=== PATIENT | female | born 1935 | race Caucasian/White ===

== ENCOUNTER 2018-07-13 13:42 | Observation (INO) | payer MEDICARE, OTHER ==
[2018-07-13] MEDS ORDERED: Sodium Chloride 0.9% 10 ML Syringe FLUSH PRN ×2 (16:37→20:03)
[2018-07-13] MEDS ORDERED: Iopamidol 755 Mg/ML 100 ML Bottle IV SCH (16:45)
[2018-07-13] MEDS ORDERED: Sodium Chloride 0.9% 80 ML IV SCH (16:45)
--- NOTE | 2018-07-13 18:16 | EDM.PDOC ---
ED HPI GENERAL MEDICAL PROBLEM - General Chief Complaint: Respiratory Problem Stated Complaint: SOB, BACK PAIN Time Seen by Provider: 07/13/18 14:31 - History of Present Illness INITIAL COMMENTS - FREE TEXT/NARRATIVE: 82 years old female patient with history of pulmonary hypertension, recurrent PE , chronically until related on Coumadin, hiatal hernia, hyperlipidemia, hypertension and other medical problem brought in by her daughter with a chief complaint of exertional dyspnea, has been going on for several weeks. She was seen by her primary doctor last month for the same complaint and she was supposed to get an echocardiogram and cardiac stress test to rule out underlying cardiac etiology. 2 days ago her shortness of breath was worse, one episode during the night resolved after a few minutes when she sat up however since then she said she gets very winded with any minimal physical activities, also went to stand up or raise her hand above the level of her head. Denies any shortness of breath during rest. Denies any chest pain. Denies any cough or fever. Denies any abdominal pain diarrhea or constipation. Denies any urinary symptom. She had a fall 2 weeks ago and fracture of her right forearm and she is here with her daughter for assistance. Upper Back Pain Score (Numeric/FACES): 3 - Related Data Allergies Allergy/AdvReac Type Severity Reaction Status Date / Time Penicillins Allergy Other Verified 07/13/18 14:08 Sulfa (Sulfonamide Allergy Other Verified 07/13/18 14:08 Antibiotics) Home Meds: Home Meds Betamethasone/Propylene Glyc [Betamethasone DP Aug 0.05%] 1 applic TOP BID PRN 07/13/18 [History] Calcipotriene [Dovonex 0.005% Crm] 1 applic TOP BID PRN 07/13/18 [History] Citalopram Hydrobromide [Celexa] 20 mg PO DAILY 07/13/18 [History] Diltiazem [Diltiazem XR] 240 mg PO DAILY 07/13/18 [History] Hydrocortisone [Hydrocortisone 2.5% Crm] 1 applicful TOP BID 07/13/18 [History] Ketoconazole [Nizoral 2% Crm] 1 applicful TOP BID PRN 07/13/18 [History] Multivitamin [Multivitamins] 1 each PO DAILY 07/13/18 [History] Omeprazole 20 mg PO DAILY 07/13/18 [History] Psyllium [Metamucil] 0.52 gm PO DAILY 07/13/18 [History] Tolterodine Tartrate [Tolterodine Tartrate ER] 4 mg PO DAILY 07/13/18 [History] Warfarin [Coumadin] 5 mg PO ASDIRECTED 07/13/18 [History] buPROPion [Wellbutrin SR] 100 mg PO DAILY 07/13/18 [History] Past Medical History HEENT History: Reports: Impaired Vision Cardiovascular History: Reports: Blood Clots/VTE/DVT Respiratory History: Reports: PE Other Respiratory History: wheezing last 2 months, has cpap Gastrointestinal History: Reports: Chronic Constipation, GERD, Hiatal Hernia Genitourinary History: Reports: Urinary Incontinence [employer] History: Reports: Musculoskeletal History: Reports: Arthritis Psychiatric History: Reports: Anxiety, Depression Endocrine/Metabolic History: Reports: Obesity/BMI 30+ Oncologic (Cancer) History: Reports: Basal Cell Carcinoma Dermatologic History: Reports: Psoriasis - Infectious Disease History Infectious Disease History: Reports: Chicken Pox, Measles, Mumps - Past Surgical History Head Surgeries/Procedures: Reports: None HEENT Surgical History: Reports: Adenoidectomy, Cataract Surgery, Tonsillectomy Cardiovascular Surgical History: Reports: None Respiratory Surgical History: Reports: None GI Surgical History: Reports: None Female Surgical History: Reports: Hysterectomy, Other (See Below) Other Female Surgeries/Procedures: bladder sling Musculoskeletal Surgical History: Reports: Other (See Below) Other Musculoskeletal Surgeries/Procedures:: rt wrist fx Oncologic Surgical History: Reports: None Dermatological Surgical History: Reports: Skin Biopsy Social & Family History - Tobacco Use Smoking Status *Q: Never Smoker Second Hand Smoke Exposure: No - Caffeine Use Caffeine Use: Reports: Tea - Recreational Drug Use Recreational Drug Use: No ED ROS GENERAL - Review of Systems Review Of Systems: ROS reveals no pertinent complaints other than HPI. ED EXAM, GENERAL - Physical Exam Exam: See Below Exam Limited By: No Limitations General Appearance: Alert, WD/WN, No Apparent Distress Ears: Normal External Exam Nose: Normal Inspection Throat/Mouth: Normal Inspection Head: Atraumatic, Normocephalic Neck: Normal Inspection, Supple, Non-Tender, Full Range of Motion Respiratory/Chest: No Respiratory Distress, Lungs Clear, Normal Breath Sounds, No Accessory Muscle Use, Rales. No: Crackles, Rhonchi, Wheezing Cardiovascular: Normal Peripheral Pulses, No Edema, No Gallop, Systolic Murmur GI/Abdominal: Normal Bowel Sounds, Soft, Non-Tender, No Organomegaly, No Distention Neurological: Alert, Oriented, CN II-XII Intact, Normal Cognition, Normal Gait, Normal Reflexes, No Motor/Sensory Deficits Course - Vital Signs Text/Narrative:: Patient was seen and examined shortly after arrival. Stable. On personnel monitor. EKG shows right bundle branch block, minimal ST elevation on the inferior leads. No previous EKG to compare. Negative troponin. Chest x-ray shows left-sided hiatal hernia. No infiltrate. EKG, lab and imaging reviewed with the patient and her daughter at the bedside. History of recurrent PE on Coumadin. I did order a CT PE which did not show any PE. No sign of pneumonia or acute infiltrate. Large hiatal hernia. No sign of volume overload or CHF. At this point this is most likely multifactorial from possibly underlying CHF however her proBNP is normal. Chest x-ray did not show any sign of pulmonary congestion or effusion and does not have any clinical sign of CHF. No edema. No jugular venous distention. She would definitely benefit from an echocardiogram and cardiac stress test to rule out cardiac etiology. Also history of pulmonary hypertension could be contributing. Definitely large hiatal hernia A overrule. Also she have a thoracic compression fracture. At this point unclear etiology. Case was discussed with Dr. king hospitalist job setter honing and he accepted admission for further management. He will discuss with the patient and her family and either she will be admitted for further workup and further management unless the family choose to be discharged to follow-up as an outpatient. Patient agrees with the plan. Stable for admission. Last Recorded V/S: Last Vital Signs Temp 36.4 C 07/13/18 14:09 Pulse 91 07/13/18 14:09 Resp 12 07/13/18 14:09 BP 142/57 H 07/13/18 14:09 Pulse Ox 91 L 07/13/18 14:09 - Orders/Labs/Meds Orders: Active Orders 24 hr Category Date Time Status Cardiac Monitoring [RC] .As Directed Care 07/13/18 14:40 Active EKG Documentation Completion [RC] ASDIRECTED Care 07/13/18 14:41 Active Ang Chest [CT] Stat Exams 07/13/18 16:21 Taken Chest 2V [CR] Stat Exams 07/13/18 14:41 Taken Iopamidol [Isovue-370 (76%)] Med 07/13/18 16:45 Active 100 ml IV . DIRECTED Sodium Chloride 0.9% [Normal Saline] 80 ml Med 07/13/18 16:45 Active IV ASDIRECTED Sodium Chloride 0.9% [Saline Flush] Med 07/13/18 16:37 Active 10 ml FLUSH ASDIRECTED PRN EKG 12 Lead [EK] Stat Ther 07/13/18 14:41 Ordered Medication Orders Sodium Chloride (Normal Saline) 80 mls @ 3 mls/sec IV ASDIRECTED SHAYE Last Admin: 07/13/18 16:53 Dose: 3 mls/sec Iopamidol (Isovue-370 (76%)) 100 ml IV . DIRECTED [facility] Last Admin: 07/13/18 16:53 Dose: 100 ml Sodium Chloride (Saline Flush) 10 ml FLUSH ASDIRECTED PRN PRN Reason: Keep Vein Open Last Admin: 07/13/18 16:52 Dose: 10 ml Labs: Laboratory Tests 07/13/18 07/13/18 07/13/18 Range/Units 14:39 14:39 14:39 WBC 5.7 (4.5-11.0) K/uL RBC 4.38 (3.30-5.50) M/uL Hgb 13.6 (12.0-15.0) g/dL Hct 42.4 (36.0-48.0) % MCV 97 (80-98) fL MCH 31 (27-31) pg MCHC 32 (32-36) % Plt Count 263 (150-400) K/uL Neut % (Auto) 55 (36-66) % Lymph % (Auto) 27 (24-44) % Hart % (Auto) 8 H (2-6) % Eos % (Auto) 9 H (2-4) % Baso % (Auto) 2 H (0-1) % PT 21.9 H (9.5-12.0) sec INR 2.07 H (0.80-1.20) Sodium 141 (140-148) mmol/L Potassium 4.0 (3.6-5.2) mmol/L Chloride 103 (100-108) mmol/L Carbon Dioxide 28 (21-32) mmol/L Anion Gap 10.2 (5.0-14.0) mmol/L BUN 13 (7-18) mg/dL Creatinine 0.9 (0.6-1.0) mg/dL Est Cr Clr Drug Dosing 35.21 mL/min Estimated GFR (MDRD) > 60 (>60) Glucose 104 (74-106) mg/dL Calcium 9.2 (8.5-10.1) mg/dL Total Bilirubin 0.3 (0.2-1.0) mg/dL AST 15 (15-37) U/L ALT 22 (12-78) U/L Alkaline Phosphatase 122 H (46-116) U/L Troponin I < 0.017 (0.000-0.056) ng/mL NT-Pro-B Natriuret Pep 73 (5-450) pg/mL Total Protein 7.2 (6.4-8.2) g/dL Albumin 3.0 L (3.4-5.0) g/dL Globulin 4.2 H (2.3-3.5) g/dL Albumin/Globulin Ratio 0.7 L (1.2-2.2) Meds: Medications Generic Name Dose Route Start Last Admin Trade Name Freq PRN Reason Stop Dose Admin Sodium Chloride 80 mls @ 3 mls/sec 07/13/18 16:45 07/13/18 16:53 Normal Saline IV 3 mls/sec ASDIRECTED SHAYE Administration Iopamidol 100 ml 07/13/18 16:45 07/13/18 16:53 Isovue-370 (76%) IV 100 ml . DIRECTED SHAYE Administration Sodium Chloride 10 ml 07/13/18 16:37 07/13/18 16:52 Saline Flush FLUSH 10 ml ASDIRECTED PRN Administration Keep Vein Open Departure - Departure Time of Disposition: 18:20 Disposition: Admitted As Inpatient 67 Condition: Good Clinical Impression: Exertional dyspnea - Discharge Information Referrals: PCP,None [Primary Care Provider] - - Problem List Review Problem List Initiated/Reviewed/Updated: Yes - My Orders Last 24 Hours: My Active Orders 07/13/18 14:40 Cardiac Monitoring [RC] .As Directed 07/13/18 14:41 EKG Documentation Completion [RC] ASDIRECTED Chest 2V [CR] Stat EKG 12 Lead [EK] Stat 07/13/18 16:21 Ang Chest [CT] Stat 07/13/18 16:37 Sodium Chloride 0.9% [Saline Flush] 10 ml FLUSH ASDIRECTED PRN 07/13/18 16:45 Iopamidol [Isovue-370 (76%)] 100 ml IV . DIRECTED Sodium Chloride 0.9% [Normal Saline] 80 ml IV ASDIRECTED - Assessment/Plan Last 24 Hours: My Active Orders 07/13/18 14:40 Cardiac Monitoring [RC] .As Directed 07/13/18 14:41 EKG Documentation Completion [RC] ASDIRECTED Chest 2V [CR] Stat EKG 12 Lead [EK] Stat 07/13/18 16:21 Ang Chest [CT] Stat 07/13/18 16:37 Sodium Chloride 0.9% [Saline Flush] 10 ml FLUSH ASDIRECTED PRN 07/13/18 16:45 Iopamidol [Isovue-370 (76%)] 100 ml IV . DIRECTED Sodium Chloride 0.9% [Normal Saline] 80 ml IV ASDIRECTED Plan: Admission to Dr. vásquez
--- NOTE | 2018-07-13 19:17 | PCM.HP ---
H&P History of Present Illness - General Date of Service: 07/13/18 Admit Problem/Dx: Admission Diagnosis/Problem Admission Diagnosis/Problem Hypoxia Source of Information: Patient, Old Records, Provider, RN Notes Reviewed History Limitations: Reports: No Limitations - History of Present Illness Initial Comments - Free Text/Narative: Ms. Rodriguez is an 82-year-old woman who was admitted through the emergency department to observation status for further evaluation and management of hypoxia and shortness of breath with exertion. She has had difficulty with shortness of breath over the past year. In June approximately one month ago she was seen and evaluated in the clinic in the [facility]. At that time with ambulation she was noted to have significant hypoxia that resolved relatively quickly with rest. Further evaluation was recommended with stress test and echocardiogram. Unfortunately she was unable to get those tests completed and then on 24 June fell and broke her wrist. She is been staying with her daughter here in [facility] as she recovers from her wrist fracture. During this week she is noted increased symptoms of shortness of breath with relatively minimal exertion.s She contacted her physician in the [facility] who recommended that she come to the emergency department for further evaluation. Laboratory studies obtained in the emergency department are unremarkable including a normal troponin and BNP. Chest x-ray shows a large hiatal hernia, no obvious infiltrates. She has a history of previous deep vein thrombosis and pulmonary emboli, currently treated on long-term oral anticoagulation with warfarin. INR obtained in the emergency department is within therapeutic range. CT scan of the chest was obtained with contrast that showed no evidence of new pulmonary emboli and no obvious pulmonary infiltrates or edema. Again was noted a large hiatal hernia with even herniation of a portion of the pancreas into the chest. Saturations in the emergency department have been in the range of 90- 91% on room air. Symptoms have been present mainly with exertion over the past few weeks but it definitely worsens. Upper Back Pain Score (Numeric/FACES): 3 - Related Data Allergies/Adverse Reactions: Allergies Allergy/AdvReac Type Severity Reaction Status Date / Time Penicillins Allergy Other Verified 07/13/18 14:08 Sulfa (Sulfonamide Allergy Other Verified 07/13/18 14:08 Antibiotics) Home Medications: Home Meds Betamethasone/Propylene Glyc [Betamethasone DP Aug 0.05%] 1 applic TOP BID PRN 07/13/18 [History] Calcipotriene [Dovonex 0.005% Crm] 1 applic TOP BID PRN 07/13/18 [History] Citalopram Hydrobromide [Celexa] 20 mg PO DAILY 07/13/18 [History] Diltiazem [Diltiazem XR] 240 mg PO DAILY 07/13/18 [History] Hydrocortisone [Hydrocortisone 2.5% Crm] 1 applicful TOP BID 07/13/18 [History] Ketoconazole [Nizoral 2% Crm] 1 applicful TOP BID PRN 07/13/18 [History] Multivitamin [Multivitamins] 1 each PO DAILY 07/13/18 [History] Omeprazole 20 mg PO DAILY 07/13/18 [History] Psyllium [Metamucil] 0.52 gm PO DAILY 07/13/18 [History] Tolterodine Tartrate [Tolterodine Tartrate ER] 4 mg PO DAILY 07/13/18 [History] Warfarin [Coumadin] 5 mg PO ASDIRECTED 07/13/18 [History] buPROPion [Wellbutrin SR] 100 mg PO DAILY 07/13/18 [History] Past Medical History HEENT History: Reports: Impaired Vision Cardiovascular History: Reports: Blood Clots/VTE/DVT Respiratory History: Reports: PE Other Respiratory History: wheezing last 2 months, has cpap Gastrointestinal History: Reports: Chronic Constipation, GERD, Hiatal Hernia Genitourinary History: Reports: Urinary Incontinence HYPERBARIC NURSE History: Reports: Musculoskeletal History: Reports: Arthritis Psychiatric History: Reports: Anxiety, Depression Endocrine/Metabolic History: Reports: Obesity/BMI 30+ Oncologic (Cancer) History: Reports: Basal Cell Carcinoma Dermatologic History: Reports: Psoriasis - Infectious Disease History Infectious Disease History: Reports: Chicken Pox, Measles, Mumps - Past Surgical History Head Surgeries/Procedures: Reports: None HEENT Surgical History: Reports: Adenoidectomy, Cataract Surgery, Tonsillectomy Cardiovascular Surgical History: Reports: None Respiratory Surgical History: Reports: None GI Surgical History: Reports: None Female Surgical History: Reports: Hysterectomy, Other (See Below) Other Female Surgeries/Procedures: bladder sling Musculoskeletal Surgical History: Reports: Other (See Below) Other Musculoskeletal Surgeries/Procedures:: rt wrist fx Oncologic Surgical History: Reports: None Dermatological Surgical History: Reports: Skin Biopsy Social & Family History - Tobacco Use Smoking Status *Q: Never Smoker Second Hand Smoke Exposure: No - Caffeine Use Caffeine Use: Reports: Tea - Recreational Drug Use Recreational Drug Use: No H&P Review of Systems - Review of Systems: Review Of Systems: See Below General: Reports: Weakness. Denies: Fever, Chills, Diaphoresis HEENT: Reports: No Symptoms Pulmonary: Reports: Shortness of Breath. Denies: Wheezing, Pleuritic Chest Pain , Cough, Sputum, Hemoptysis Cardiovascular: Reports: Dyspnea on Exertion. Denies: Chest Pain, Palpitations , Orthopnea, PND, Edema, Lightheadedness, Syncope Gastrointestinal: Reports: No Symptoms Genitourinary: Reports: No Symptoms Musculoskeletal: Reports: No Symptoms Skin: Reports: No Symptoms Psychiatric: Reports: No Symptoms Neurological: Reports: No Symptoms Hematologic/Lymphatic: Reports: No Symptoms Immunologic: Reports: No Symptoms Exam - Exam Exam: See Below - Vital Signs Vital Signs: Last Vital Signs Temp 97.6 F 07/13/18 14:09 Pulse 91 07/13/18 14:09 Resp 12 07/13/18 14:09 BP 142/57 H 07/13/18 14:09 Pulse Ox 91 L 07/13/18 14:09 Weight: 165 lb - Exam Quality Assessment: DVT Prophylaxis General: Alert, Oriented, Cooperative, Mild Distress HEENT: Conjunctiva Clear, Hearing Intact, Mucosa Moist & Thorp, Normal Nasal Septum, Posterior Pharynx Clear, Pupils Equal Neck: Supple, Trachea Midline, +2 Carotid Pulse wo Bruit Lungs: Clear to Auscultation, Normal Respiratory Effort Cardiovascular: Regular Rate, Regular Rhythm, Normal S1, Normal S2, Systolic Murmur (Harsh 3/6 systolic murmur heard best at the left sternal border). No: Diastolic Murmur GI/Abdominal Exam: Soft, Non-Tender, No Organomegaly, No Distention Back Exam: Normal Inspection, Full Range of Motion Extremities: Non-Tender, No Pedal Edema Skin: Warm, Dry, Intact Neurological: Cranial Nerves Intact, Strength Equal Bilateral, Normal Speech, Normal Tone, Sensation Intact. No: Focal Deficit Neuro Extensive - Mental Status: Alert, Oriented x3, Normal Mood/Affect, Normal Cognition, Memory Intact - Patient Data Lab Results Last 24 hrs: Laboratory Results - last 24 hr 07/13/18 07/13/18 07/13/18 Range/Units 14:39 14:39 14:39 WBC 5.7 (4.5-11.0) K/uL RBC 4.38 (3.30-5.50) M/uL Hgb 13.6 (12.0-15.0) g/dL Hct 42.4 (36.0-48.0) % MCV 97 (80-98) fL MCH 31 (27-31) pg MCHC 32 (32-36) % Plt Count 263 (150-400) K/uL Neut % (Auto) 55 (36-66) % Lymph % (Auto) 27 (24-44) % [place] % (Auto) 8 H (2-6) % Eos % (Auto) 9 H (2-4) % Baso % (Auto) 2 H (0-1) % PT 21.9 H (9.5-12.0) sec INR 2.07 H (0.80-1.20) Sodium 141 (140-148) mmol/L Potassium 4.0 (3.6-5.2) mmol/L Chloride 103 (100-108) mmol/L Carbon Dioxide 28 (21-32) mmol/L Anion Gap 10.2 (5.0-14.0) mmol/L BUN 13 (7-18) mg/dL Creatinine 0.9 (0.6-1.0) mg/dL Est Cr Clr Drug Dosing 35.21 mL/min Estimated GFR (MDRD) > 60 (>60) Glucose 104 (74-106) mg/dL Calcium 9.2 (8.5-10.1) mg/dL Total Bilirubin 0.3 (0.2-1.0) mg/dL AST 15 (15-37) U/L ALT 22 (12-78) U/L Alkaline Phosphatase 122 H (46-116) U/L Troponin I < 0.017 (0.000-0.056) ng/mL NT-Pro-B Natriuret Pep 73 (5-450) pg/mL Total Protein 7.2 (6.4-8.2) g/dL Albumin 3.0 L (3.4-5.0) g/dL Globulin 4.2 H (2.3-3.5) g/dL Albumin/Globulin Ratio 0.7 L (1.2-2.2) Result Diagrams: 07/13/18 14:39 07/13/18 14:39 *Q Meaningful Use (ADM) - VTE *Q VTE Pharmacological Contraindications *Q: High INR Value - VTE Risk Assess *Q Each Risk Factor Represents 1 Point: Obesity ( BMI > 25 kg/m2) Total Score 1 Point Risk Factors: 1 Each Risk Factor Represents 2 Points: Immobilizing plaster cast less than 1 month Total Score 2 Point Risk Factors: 2 Each Risk Factor Represents 3 Points: Age 75 Years or Greater, History of DVT/PE Total Score 3 Point Risk Factors: 6 Each Risk Factor Represents 5 Points: None Total Score 5 Point Risk Factors: 0 Venous Thromboembolism Risk Factor Score *Q: 9 Problem List Initiated/Reviewed/Updated: Yes Orders Last 24hrs: Active Orders 24 hr Category Date Time Status Patient Status Manage Transfer [TRANSFER] Routine ADT 07/13/18 19:05 Ordered Cardiac Monitoring [RC] .As Directed Care 07/13/18 14:40 Active EKG Documentation Completion [RC] ASDIRECTED Care 07/13/18 14:41 Active Ang Chest [CT] Stat Exams 07/13/18 16:21 Taken Chest 2V [CR] Stat Exams 07/13/18 14:41 Taken Iopamidol [Isovue-370 (76%)] Med 07/13/18 16:45 Active 100 ml IV . DIRECTED Sodium Chloride 0.9% [Normal Saline] 80 ml Med 07/13/18 16:45 Active IV ASDIRECTED Sodium Chloride 0.9% [Saline Flush] Med 07/13/18 16:37 Active 10 ml FLUSH ASDIRECTED PRN Resuscitation Status Routine Resus Stat 07/13/18 19:08 Ordered EKG 12 Lead [EK] Stat Ther 07/13/18 14:41 Ordered Medication Orders Sodium Chloride (Normal Saline) 80 mls @ 3 mls/sec IV ASDIRECTED SHAYE Last Admin: 07/13/18 16:53 Dose: 3 mls/sec Iopamidol (Isovue-370 (76%)) 100 ml IV . DIRECTED [facility] Last Admin: 07/13/18 16:53 Dose: 100 ml Sodium Chloride (Saline Flush) 10 ml FLUSH ASDIRECTED PRN PRN Reason: Keep Vein Open Last Admin: 07/13/18 16:52 Dose: 10 ml Assessment/Plan Comment:: ASSESSMENT AND PLAN DYSPNEA AND HYPOXIA WITH ACTIVITY-evaluation thus far shows no evidence of pulmonary embolism, pulmonary edema, pulmonary infiltrate, or acute infarct. CT scan does show a large hiatal hernia causing atelectasis which is likely a contributing factor. Troponin and BNP are within normal range. She has a systolic murmur consistent with aortic stenosis. Symptoms could also potentially represent anginal equivalent. Further evaluation is warranted, we are unable to obtain an echocardiogram or Cardiolite stress test until Monday morning. She will be admitted for observation and will consider transfer to tertiary care center in a.m. -Cardiac monitoring -Supplemental oxygen as needed -Transfer in a.m. for further evaluation LARGE HIATAL HERNIA-causing atelectasis HISTORY OF DEEP VEIN THROMBOSIS AND PULMONARY EMBOLISM-on long-term oral anticoagulation with warfarin, INR is within therapeutic range. MAINTENANCE ISSUES -DVT prophylaxis;Current therapy with warfarin should provide adequate DVT prophylaxis -GI prophylaxis;Not indicated -Dahl catheter;Not indicated -Nutrition;Regular diet -Nicotine dependence;Not required CODE STATUS-FULL CODE ADMISSION STATUS-this patient will be admitted to observation status symptoms expect no more than a one night hospital stay for evaluation and management of problems as outlined above. DISPOSITION-anticipate discharge/transfer in a.m. PRIMARY CARE PROVIDER-
[2018-07-13] MEDS ORDERED: Albuterol 0.083% 2.5 MG/3 ML Neb Soln NEB PRN (20:03)
[2018-07-13] MEDS ORDERED: Acetaminophen 325 MG Tab PO PRN (20:03)
[2018-07-13] MEDS ORDERED: Ondansetron 4 MG Tab.DIS PO PRN (20:03)
[2018-07-13] MEDS ORDERED: TOLTERODINE TARTRATE 4 MG PO SCH (21:00)
[2018-07-13] MEDS ORDERED: Hydrocortisone 2.5% Crm 30 GM Tube TOP SCH (21:00)
[2018-07-13] MEDS: WARFARIN 5 MG PO SCH (22:41)
[2018-07-14] MEDS ORDERED: BUPROPION 100 MG PO SCH (09:00)
[2018-07-14] MEDS ORDERED: DILTIAZEM 240 MG PO SCH (09:00)
[2018-07-14] MEDS ORDERED: CITALOPRAM 20 MG PO SCH (09:00)
[2018-07-14] MEDS ORDERED: OMEPRAZOLE 20 MG PO SCH (09:00)
[2018-07-14] MEDS: WARFARIN 5 MG PO SCH (09:20)
--- NOTE | 2018-07-14 10:52 | PCM.DCSUM1 ---
Discharge Summary - Hospital Course Brief History: Ms. Rodriguez is an 82-year-old woman who was admitted to observation status for evaluation and management of exertional dyspnea and upper back pain. - Discharge Data Discharge Date: 07/14/18 Discharge Disposition: DC/Tfer to Acute Hospital 02 Condition: Fair - Discharge Diagnosis/Problem(s) (1) Anginal equivalent SNOMED Code(s): 459611563 ICD Code: I20.8 - OTHER FORMS OF ANGINA PECTORIS Status: Acute Current Visit: Yes (2) Exertional dyspnea SNOMED Code(s): 51388271 ICD Code: R06.09 - OTHER FORMS OF DYSPNEA Status: Acute Current Visit: Yes (3) Aortic stenosis SNOMED Code(s): 74466144 ICD Code: I35.0 - NONRHEUMATIC AORTIC (VALVE) STENOSIS Status: Acute Current Visit: Yes (4) Large hiatal hernia SNOMED Code(s): 29203269 ICD Code: K44.9 - DIAPHRAGMATIC HERNIA WITHOUT OBSTRUCTION OR GANGRENE Status: Acute Current Visit: Yes - Patient Summary/Data Hospital Course: Ms. Rodriguez is an 82-year-old woman who was admitted through the emergency department to observation status for further evaluation and management of shortness of breath and upper back pain associated with exertion. She has had difficulty with shortness of breath over the past year. In June approximately one month ago she was seen and evaluated in the clinic in the [facility]. At that time with ambulation she was noted to have significant hypoxia that resolved relatively quickly with rest. Further evaluation was recommended with stress test and echocardiogram. Unfortunately she was unable to get those tests completed and then on 24 June fell and broke her wrist. She is been staying with her daughter here in [facility] as she recovers from her wrist fracture. Over the past 1-2 weeks she has noted progression of her symptoms with shortness of breath and pain radiating to her upper back occurring with relatively minimal exertion. She contacted her physician in the [facility] who recommended that she come to the emergency department for further evaluation. Laboratory studies obtained in the emergency department are unremarkable including a normal troponin and BNP. Chest x-ray shows a large hiatal hernia, no obvious infiltrates. She has a history of previous deep vein thrombosis and pulmonary emboli, currently treated on long-term oral anticoagulation with warfarin. INR obtained in the emergency department is within therapeutic range. CT scan of the chest was obtained with contrast that showed no evidence of new pulmonary emboli and no obvious pulmonary infiltrates or edema. 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 Saturations in the emergency department have been in the range of 90-91% on room air. Symptoms have been present mainly with exertion over the past few weeks but it definitely worse over the past few days. She was placed on telemetry monitoring on admission and no significant dysrhythmias were noted during the hospital stay. She was able to walk in the hallway with staff and did become mildly dyspneic. This morning when she went into the bathroom and came out was very short of breath with pain into her upper back. Symptoms resolved with rest and required no further intervention. Concern is that she is experiencing possible anginal equivalent and will require further evaluation. She would like to return to the [facility] for this evaluation, I attempted to try and facilitate outpatient evaluation but was unsuccessful in doing this. I'm concerned that she is experiencing progressive anginal symptoms especially in the light of otherwise negative evaluation. She does have a murmur consistent with aortic stenosis and it is also likely that her large hiatal hernia causing atelectasis is contributing to symptoms of shortness of breath. I discussed findings and concerns with Dr. Marcos Griggs in the emergency department at [facility] in [facility]. Given the inability to facilitate expedient outpatient evaluation patient will be transferred there for further evaluation on an inpatient basis. Activity will be as tolerated and she will remain on her usual diet. She was started on aspirin 81 mg daily while in the hospital and also metoprolol 25 mg twice daily. - Patient Instructions Diet: Low Sodium Activity: No Strenuous Activities Other/Special Instructions: Patient will be transferred to [facility] in [facility] by family for further subspecialty evaluation and management. - Discharge Plan *PRESCRIPTION DRUG MONITORING PROGRAM REVIEWED*: Not Applicable *COPY OF PRESCRIPTION DRUG MONITORING REPORT IN PATIENT KATY: Not Applicable Home Medications: Home Meds Betamethasone/Propylene Glyc [Betamethasone DP Aug 0.05%] 1 applic TOP BID PRN 07/13/18 [History] Calcipotriene [Dovonex 0.005% Crm] 1 applic TOP BID PRN 07/13/18 [History] Citalopram Hydrobromide [Celexa] 20 mg PO DAILY 07/13/18 [History] Diltiazem [Dilacor XR] 240 mg PO DAILY 07/13/18 [History] Hydrocortisone [Hydrocortisone 2.5% Crm] 1 applicful TOP BID 07/13/18 [History] Ketoconazole [Nizoral 2% Crm] 1 applicful TOP BID PRN 07/13/18 [History] Multivitamin [Multivitamins] 1 each PO DAILY 07/13/18 [History] Omeprazole 20 mg PO DAILY 07/13/18 [History] Psyllium [Metamucil] 0.52 gm PO DAILY 07/13/18 [History] Tolterodine Tartrate [Tolterodine Tartrate ER] 4 mg PO DAILY 07/13/18 [History] Warfarin [Coumadin] 5 mg PO ASDIRECTED 07/13/18 [History] buPROPion [Wellbutrin SR] 100 mg PO DAILY 07/13/18 [History] Aspirin 81 mg PO DAILY tab.chew 07/14/18 [Rx] Metoprolol Tartrate [Lopressor] 25 mg PO Q12H tablet 07/14/18 [Rx] - Discharge Summary/Plan Comment DC Time >30 min.: No - Patient Data Vitals - Most Recent: Last Vital Signs Temp 97.6 F 07/14/18 06:55 Pulse 68 07/14/18 06:55 Resp 18 07/14/18 06:55 BP 133/50 L 07/14/18 06:55 Pulse Ox 95 07/14/18 07:28 Weight - Most Recent: 155 lb 2 oz I&O - Last 24 hours: Intake & Output 07/13/18 07/14/18 07/14/18 22:59 06:59 14:59 Intake Total 240 Balance 240 Lab Results - Last 24 hrs: Laboratory Results - last 24 hr 07/13/18 07/13/18 07/13/18 Range/Units 14:39 14:39 14:39 WBC 5.7 (4.5-11.0) K/uL RBC 4.38 (3.30-5.50) M/uL Hgb 13.6 (12.0-15.0) g/dL Hct 42.4 (36.0-48.0) % MCV 97 (80-98) fL MCH 31 (27-31) pg MCHC 32 (32-36) % Plt Count 263 (150-400) K/uL Neut % (Auto) 55 (36-66) % Lymph % (Auto) 27 (24-44) % Howell % (Auto) 8 H (2-6) % Eos % (Auto) 9 H (2-4) % Baso % (Auto) 2 H (0-1) % PT 21.9 H (9.5-12.0) sec INR 2.07 H (0.80-1.20) Sodium 141 (140-148) mmol/L Potassium 4.0 (3.6-5.2) mmol/L Chloride 103 (100-108) mmol/L Carbon Dioxide 28 (21-32) mmol/L Anion Gap 10.2 (5.0-14.0) mmol/L BUN 13 (7-18) mg/dL Creatinine 0.9 (0.6-1.0) mg/dL Est Cr Clr Drug Dosing 35.21 mL/min Estimated GFR (MDRD) > 60 (>60) Glucose 104 (74-106) mg/dL Calcium 9.2 (8.5-10.1) mg/dL Total Bilirubin 0.3 (0.2-1.0) mg/dL AST 15 (15-37) U/L ALT 22 (12-78) U/L Alkaline Phosphatase 122 H (46-116) U/L Troponin I < 0.017 (0.000-0.056) ng/mL NT-Pro-B Natriuret Pep 73 (5-450) pg/mL Total Protein 7.2 (6.4-8.2) g/dL Albumin 3.0 L (3.4-5.0) g/dL Globulin 4.2 H (2.3-3.5) g/dL Albumin/Globulin Ratio 0.7 L (1.2-2.2) 07/14/18 07/14/18 Range/Units 04:56 04:56 WBC 6.0 (4.5-11.0) K/uL RBC 4.01 (3.30-5.50) M/uL Hgb 12.5 (12.0-15.0) g/dL Hct 38.9 (36.0-48.0) % MCV 97 (80-98) fL MCH 31 (27-31) pg MCHC 32 (32-36) % Plt Count 238 (150-400) K/uL Neut % (Auto) 52 (36-66) % Lymph % (Auto) 26 (24-44) % Howell % (Auto) 12 H (2-6) % Eos % (Auto) 9 H (2-4) % Baso % (Auto) 1 (0-1) % PT (9.5-12.0) sec INR (0.80-1.20) Sodium 140 (140-148) mmol/L Potassium 4.2 (3.6-5.2) mmol/L Chloride 105 (100-108) mmol/L Carbon Dioxide 29 (21-32) mmol/L Anion Gap 6.1 (5.0-14.0) mmol/L BUN 10 (7-18) mg/dL Creatinine 0.9 (0.6-1.0) mg/dL Est Cr Clr Drug Dosing 35.21 mL/min Estimated GFR (MDRD) > 60 (>60) Glucose 100 (74-106) mg/dL Calcium 8.9 (8.5-10.1) mg/dL Total Bilirubin (0.2-1.0) mg/dL AST (15-37) U/L ALT (12-78) U/L Alkaline Phosphatase (46-116) U/L Troponin I (0.000-0.056) ng/mL NT-Pro-B Natriuret Pep (5-450) pg/mL Total Protein (6.4-8.2) g/dL Albumin (3.4-5.0) g/dL Globulin (2.3-3.5) g/dL Albumin/Globulin Ratio (1.2-2.2) Med Orders - Current: Current Medications Acetaminophen (Tylenol) 650 mg PO Q4H PRN PRN Reason: Pain (Mild 1-3)/fever Albuterol (Proventil Neb Soln) 2.5 mg NEB Q4H PRN PRN Reason: Shortness Of Breath/wheezing Aspirin (Aspirin) 81 mg PO DAILY [facility] Bupropion HCl (Wellbutrin Sr) 100 mg PO DAILY [facility] Citalopram Hydrobromide (Celexa) 20 mg PO DAILY [facility] Hydrocortisone (Hydrocortisone 2.5% Crm) 0 gm TOP BID [facility] Last Admin: 07/14/18 09:20 Dose: Not Given Metoprolol Tartrate (Lopressor) 25 mg PO Q12H [facility] Diltiazem (Cartia Xt () 240 MgPom) 0 mg PO DAILY [facility] Last Admin: 07/14/18 09:20 Dose: 240 mg Omeprazole (Prilosec (Otc) 20mgPom) 0 mg PO ACBREAKFAST [facility] Last Admin: 07/14/18 09:20 Dose: 20 mg Tolterodine Tartrate Er 4mg Own Med * * 4 mg PO BEDTIME [facility] Last Admin: 07/13/18 22:40 Dose: 4 mg Ondansetron HCl (Zofran Odt) 4 mg PO Q6H PRN PRN Reason: Nausea able to take PO Senna/Docusate Sodium (Senna Plus) 1 tab PO BID PRN PRN Reason: Constipation Sodium Chloride (Saline Flush) 10 ml FLUSH ASDIRECTED PRN PRN Reason: Keep Vein Open Warfarin Sodium (Coumadin) 5 mg PO DAILY [facility] Last Admin: 07/14/18 09:20 Dose: Not Given Discontinued Medications Sodium Chloride (Normal Saline) 80 mls @ 3 mls/sec IV ASDIRECTED [facility] Last Admin: 07/13/18 16:53 Dose: 3 mls/sec Iopamidol (Isovue-370 (76%)) 100 ml IV . DIRECTED [facility] Last Admin: 07/13/18 16:53 Dose: 100 ml Sodium Chloride (Saline Flush) 10 ml FLUSH ASDIRECTED PRN PRN Reason: Keep Vein Open Last Admin: 07/13/18 16:52 Dose: 10 ml - Exam General: Reports: Alert, Oriented, Cooperative, No Acute Distress Lungs: Reports: Clear to Auscultation, Normal Respiratory Effort Cardiovascular: Reports: Regular Rate, Regular Rhythm, Murmurs (3/6 systolic murmur heard best left sternal border) GI/Abdominal Exam: Soft, Non-Tender, No Organomegaly, No Distention Extremities: Non-Tender, No Pedal Edema *Q Meaningful Use (DIS) - VTE *Q VTE Pharmacological Contraindications *Q: High INR Value
[2018-07-14] MEDS ORDERED: Aspirin 81 MG Tab.Chew PO SCH (11:30)
[2018-07-14] MEDS ORDERED: Metoprolol Tartrate 25 MG Tab PO SCH (11:30)
--- NOTE | 2018-07-16 08:47 | CR ---
CHEST: 2 view CLINICAL HISTORY:SOB COMPARISON:None FINDINGS: Patient has a large hiatal hernia. The heart size and pulmonary vascularity are normal. There are atherosclerotic changes in the aorta.. There are some streaky density in the left lower lung field which is likely some compressive atelectasis. There is a nodular density in the left infrahilar region which may be superimposition. Impression: Very large hiatal hernia Left infrahilar nodular density. This was not identified the within lung parenchyma on the current the CTA chest. Left lower lobe airspace disease require short-term follow-up chest x-ray
== END 2018-07-14 11:45 ==
LOC: JP.ED 13:42 → JP.MS 19:05
PROVIDERS: ADMIT Hospitalist; ATTEND Hospitalist
DX: R06.09 Other forms of dyspnea (principal); M54.9 Dorsalgia, unspecified; R09.02 Hypoxemia; K44.9 Diaphragmatic hernia without obstruction or gangrene; I20.8 Other forms of angina pectoris; I35.0 Nonrheumatic aortic (valve) stenosis; S22.059A Unspecified fracture of T5-T6 vertebra, initial encounter for closed fracture; S22.069A Unspecified fracture of T7-T8 vertebra, initial encounter for closed fracture; E66.9 Obesity, unspecified; F41.9 Anxiety disorder, unspecified; F32.9 Major depressive disorder, single episode, unspecified; Z86.718 Personal history of other venous thrombosis and embolism; Z79.01 Long term (current) use of anticoagulants; X58.XXXA Exposure to other specified factors, initial encounter
CPT/HCPCS: 36415; 71046; 71275; 80048; 80053; 83880; 84484; 85025; 85610; 93005; 99285; A9270; G0378; J7030; Q9967; 93010; 99284